=== PATIENT | male | born 1955 | race Two or more races ===

== ENCOUNTER → 2020-10-18 | Outpatient (CLI) | payer OTHER ==
[~2020-10-18] MED LIST: OMEGA-31000 MG PO; ZOCOR5 MG PO
== END | disposition home or self-care (01) ==
LOC: TOM 08:58
PROVIDERS: ATTEND Internal Medicine Hematology & Oncology
DX: D68.59 Other primary thrombophilia (principal); E72.11 Homocystinuria; E72.12 Methylenetetrahydrofolate reductase deficiency; R97.0 Elevated carcinoembryonic antigen [CEA]
CPT/HCPCS: 71260; 74177; Q9965

== ENCOUNTER 2021-12-27 09:53 | Outpatient (CLI) | payer OTHER | END 2021-12-27 09:56 | disposition home or self-care (01) | LOC: SONOGRAMA 09:53 | PROVIDERS: ATTEND Pathology Anatomic Pathology & Clinical Pathology | DX: E03.8 Other specified hypothyroidism (principal) ==

== ENCOUNTER → 2022-01-22 | Outpatient (CLI) | payer OTHER | END | disposition home or self-care (01) | LOC: NUCLEAR 09:21 | PROVIDERS: ATTEND Internal Medicine Geriatric Medicine | DX: M81.0 Age-related osteoporosis without current pathological fracture (principal) ==

== ENCOUNTER → 2022-09-03 | Outpatient (CLI) | payer OTHER | END | disposition home or self-care (01) | LOC: MRI 08:53 | PROVIDERS: ATTEND Orthopaedic Surgery | DX: M25.511 Pain in right shoulder (principal) | CPT/HCPCS: 73221 ==

== ENCOUNTER 2023-02-25 15:58 | Outpatient (CLI) | payer OTHER ==
[~2023-02-25 15:58] MED LIST changes: +OBTREX DHA COM1 EACH PO; +ZOCOR20 MG PO; -ZOCOR5 MG PO
== END 2023-02-25 16:08 | disposition home or self-care (01) ==
LOC: LAB 15:58
PROVIDERS: ATTEND Internal Medicine Geriatric Medicine
DX: D68.9 Coagulation defect, unspecified (principal)

== ENCOUNTER 2023-02-27 10:50 | Day surgery (SDC) | payer OTHER ==
[2023-02-27] MEDS ORDERED: KETO10TA2 PO (14:37)
[2023-02-27] MEDS ORDERED: MIRALAX17 GM PO (14:37)
[2023-02-27] MEDS ORDERED: TRAMADOL HCL50 MG PO (14:37)
[2023-02-27] MEDS ORDERED: TYLENOL ARTHRI650 MG PO (14:37)
== END 2023-02-27 18:15 | disposition home or self-care (01) ==
LOC: CIR.AMB 10:50
PROVIDERS: ATTEND Surgery
DX: K41.90 Unilateral femoral hernia, without obstruction or gangrene, not specified as recurrent (principal); K42.0 Umbilical hernia with obstruction, without gangrene; Z20.822 Contact with and (suspected) exposure to COVID-19; I10 Essential (primary) hypertension
CPT/HCPCS: 49650; 49592; C1781

== ENCOUNTER 2024-04-23 09:34 | Outpatient (CLI) | payer OTHER ==
[~2024-04-23 09:34] MED LIST changes: +KETO10TA2 PO; +MIRALAX17 GM PO; +TRAMADOL HCL50 MG PO; +TYLENOL ARTHRI650 MG PO
[2024-04-23 10:01] LABS: HEMOGLOBIN 15.1 g/dL (13-16.00); MEAN CELL VOLUME 95.1 fL (80.0-100.00); MEAN CORPUSCULAR HGB CONC 33.6 g/dl (32.0-36.0); PLATELET COUNT 282 K/uL (150-450); RED BLOOD COUNT 4.73 M/uL (4.00-6.00); RED CELL DISTRIBUTION WIDTH 12.2 % (11.5-14.5)
[2024-04-23 10:57] LABS: BILIRUBIN TOTAL 0.47 mg/dL (0.3-1.2); CREATININE SERUM 0.97 mg/dL (0.70-1.30); GFR 76.51; GLOBULINA 3.1 G/DL (2.4-3.5); POTASSIUM 4.59 mEq/L (3.5-5.1); PROSTATIC SPECIFIC ANTIGEN 0.974 NG/ML (0.010-4.00); TOTAL PROTEIN 7.1 gm/dL (6.4-8.2)
[2024-04-23 11:37] LABS: MANUAL PLATELET COUNT 382; PLATELET ESTIMATE NORMAL (NORMAL)
[2024-04-23 12:11] LABS: FOLIC ACID > 20.00 ng/ml (4.78-20); VITAMIN D3 25 HYDROXY 37.65 ng/ml (30-120)
== END 2024-04-23 09:35 | disposition home or self-care (01) ==
LOC: LAB 09:34
PROVIDERS: ATTEND Internal Medicine Hematology & Oncology
DX: D50.8 Other iron deficiency anemias (principal); I10 Essential (primary) hypertension; R74.02 Elevation of levels of lactic acid dehydrogenase [LDH]; K76.89 Other specified diseases of liver; D51.8 Other vitamin B12 deficiency anemias; R97.0 Elevated carcinoembryonic antigen [CEA]; D68.59 Other primary thrombophilia; E72.11 Homocystinuria; E72.12 Methylenetetrahydrofolate reductase deficiency

== ENCOUNTER 2024-04-23 10:09 | Outpatient (CLI) | payer OTHER | END 2024-04-23 10:15 | disposition home or self-care (01) | LOC: SONOGRAMA 10:09 | PROVIDERS: ATTEND Internal Medicine Hematology & Oncology | DX: E04.2 Nontoxic multinodular goiter (principal); E72.11 Homocystinuria; E72.12 Methylenetetrahydrofolate reductase deficiency; R97.0 Elevated carcinoembryonic antigen [CEA] ==

== ENCOUNTER 2024-10-07 07:55 | Day surgery (SDC) | payer OTHER ==
[2024-09-24 09:55] LABS: HEMATOCRIT 45.6 % (39.0-48.0); HEMOGLOBIN 15.6 g/dL (13-16.00); MEAN CELL VOLUME 95.3 fL (80.0-100.00); MEAN CORPUSCULAR HEMOGLOBIN 32.7 pg (27.00-32.0); MEAN CORPUSCULAR HGB CONC 34.3 g/dl (32.0-36.0); PLATELET COUNT 291 K/uL (150-450); RED BLOOD COUNT 4.79 M/uL (4.00-6.00); RED CELL DISTRIBUTION WIDTH 13.5 % (11.5-14.5)
[2024-09-24 10:01] LABS: PH,URINE 7.5 (5.0-8.0); URINE APPEARANCE Clear; URINE BILIRRUBIN Negative (NEGATIVE); URINE BLOOD Negative; URINE COLOR Yellow; URINE GLUCOSE Negative (NEGATIVE); URINE KETONE Negative (NEGATIVE); URINE LEUKOCYTE Trace; URINE NITRATE Negative; URINE PROTEIN Trace (NEGATIVE); URINE UROBILINOGEN 0.2 E.U./dl
[2024-09-24 10:05] LABS: URINE RBC 23.4 uL (0.0-20.8); URINE WBC 2.5 uL (0.0-23.2)
[2024-09-24 10:07] LABS: URINE BACTERIA 3.6 uL (0.0-1933); URINE EPITHELIAL CELLS 0.1 uL (0.0-38.8)
[2024-09-24 10:35] LABS: ALBUMIN 4.2 gm/dL (3.4-5.0); BILIRUBIN TOTAL 0.78 mg/dL (0.3-1.2); CALCIUM 9.1 mg/dL (8.5-10.1); CREATININE SERUM 0.94 mg/dL (0.70-1.30); GFR 79.34; GLOBULINA 3.1 G/DL (2.4-3.5); POTASSIUM 4.48 mEq/L (3.5-5.1); TOTAL PROTEIN 7.3 gm/dL (6.4-8.2)
[2024-09-24 10:52] LABS: INR 1.05
[2024-09-24 10:59] LABS: PARTIAL THROMBOPLASTIN TIME 37.2 SECONDS (22.0-34.0); PROTHROMBIN TIME 11.4 SECONDS (9.0-11.5)
[2024-10-07] MEDS ORDERED: TRAMADOL HCL50 MG PO (08:01)
[2024-10-07] MEDS ORDERED: KETO10TA2 PO (08:01)
[2024-10-07] MEDS ORDERED: MIRALAX17 GM PO (08:01)
[2024-10-07] MEDS ORDERED: TYLENOL ARTHRI650 MG PO (08:01)
[2024-10-07] MEDS ORDERED: CEFAZOLIN SODIUM 1,000 MG VIAL ONE (09:10)
[2024-10-07] MEDS ORDERED: LIDOCAINE HCL 1%/EPINEPHRINE 20ML VIAL IJ ONE (09:49)
[2024-10-07] MEDS ORDERED: BUPIVACAINE HCL/MPF 0.5% 30ML VIAL ONE (09:50)
[2024-10-07] MEDS ORDERED: KETOROLAC TROMETHAMINE 30 MG VIAL ONE (11:34)
[2024-10-07] MEDS ORDERED: SUGAMMADEX SODIUM 200 MG/2 ML VIAL IV ONE (11:43)
[2024-10-07] MEDS ORDERED: KETOROLAC TROMETHAMINE 30 MG VIAL IV ONE (11:45)
[2024-10-07 15:05] VITALS: BP 140/56; O2SAT 100
== END 2024-10-07 16:00 | disposition home or self-care (01) ==
LOC: CIR.AMB 07:55
PROVIDERS: ATTEND Surgery
DX: K40.90 Unilateral inguinal hernia, without obstruction or gangrene, not specified as recurrent (principal); K42.0 Umbilical hernia with obstruction, without gangrene; I10 Essential (primary) hypertension; E78.5 Hyperlipidemia, unspecified
CPT/HCPCS: 49614; 49650; C1781

== ENCOUNTER 2025-01-05 09:41 | Outpatient (CLI) | payer OTHER | END 2025-01-05 09:48 | disposition home or self-care (01) | LOC: TOM 09:41 | PROVIDERS: ATTEND Surgery | DX: R10.9 Unspecified abdominal pain (principal); K40.90 Unilateral inguinal hernia, without obstruction or gangrene, not specified as recurrent | CPT/HCPCS: 74177; Q9965 ==